=== PATIENT | male | born 1995 | race Two or more races ===

== ENCOUNTER → 2019-10-18 | Emergency (ER) | payer BC, OTHER ==
[~2019-10-18] VITALS: Ht 162.6 cm; Wt 56.7 kg
[2019-10-18 04:25] VITALS: BP 115/72
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
--- NOTE | 2019-10-18 04:27 | NUR ---
ED Nurse Note: ERMD at bedside.
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
--- NOTE | 2019-10-18 04:40 | NUR ---
ED Nurse Note: Nose splint was applied by performing arts technicians.
[2019-10-18 04:44] VITALS: BP 115/72
--- NOTE | 2019-10-18 04:44 | NUR ---
ED Nurse Note: Pt cleared byERMDr for discharge. DC instructions was given and explained to pt and verbalized understanding of teachings. All medical deviecs such as ID band removed. Pt is AAO x4, ambulatory and left with all personal belongings. Accompanied by his s/o.
== END | disposition home or self-care (01) ==
LOC: EMR 05:03
DX: S02.2XXA Fracture of nasal bones, initial encounter for closed fracture (principal); Y04.2XXA Assault by strike against or bumped into by another person, initial encounter; Y92.9 Unspecified place or not applicable
CPT/HCPCS: 99282